=== PATIENT | male | born 1980 | race Caucasian/White ===

== ENCOUNTER 2016-10-26 07:19 | Day surgery (SDC) | payer OTHER ==
[2016-10-18 17:08] VITALS: BMI 25.1
[2016-10-26] MEDS ORDERED: LIDOCAINE HCL 1%, 10 MG/ML (20ML VIAL) ONE (07:22)
[2016-10-26] MEDS ORDERED: MIDAZOLAM HCL 2 MG/2 ML SINGLE DOSE VIAL ONE ×2 (08:02→09:01)
[2016-10-26] MEDS ORDERED: ROPIVACAINE HCL 0.5% 30ML VIAL ONE (08:02)
[2016-10-26] MEDS ORDERED: DEXAMETHASONE SOD PHOSPHATE 4 MG/1 ML VIAL ONE (08:02)
[2016-10-26] MEDS ORDERED: DEXAMETHASONE SOD PHOSPHATE/PF 10 MG/ML SDV ONE (08:03)
[2016-10-26] MEDS ORDERED: PROPOFOL 20 ML ONE ×3 (08:30)
[2016-10-26] MEDS ORDERED: LIDOCAINE HCL 1%, 10 MG/ML (20ML VIAL) IJ ONE (08:50)
[2016-10-26] MEDS ORDERED: ONDANSETRON 4 MG/2 ML VIAL ONE (10:53)
[2016-10-26] MEDS ORDERED: oxyCODONE HCL 5 MG TABLET PO PRN ×2 (11:58)
[2016-10-26] MEDS ORDERED: ONDANSETRON 4 MG/2 ML VIAL IVPUSH PRN (11:58)
[2016-10-26] MEDS ORDERED: PROMETHAZINE HCL 25 MG/1 ML VIAL IVPUSH PRN (11:58)
[2016-10-26] MEDS ORDERED: LACTATED RINGERS SOLUTION 1,000 ML IV SCH (12:00)
[2016-10-26 14:54] VITALS: BP 132/84; PULSE 91; TEMP 97.8
--- NOTE | 2016-10-29 10:14 | OP ---
DATE OF OPERATION: 10/26/2016 PREOPERATIVE DIAGNOSIS: Recurrent shoulder dislocations, right shoulder. POSTOPERATIVE DIAGNOSES: 1. Labral tear with capsular insufficiency. 2. Posttraumatic arthritis, right shoulder. PROCEDURE: Arthroscopy, debridement of glenohumeral joint, synovectomy, labral repair, and capsular shift, right shoulder. SURGEON: Kt Avila MD FINDINGS AND PROCEDURE: The patient was seen in the preoperative holding area where the right shoulder was marked. An interscalene block was administered. The patient was then brought to the operating room and placed on the OR table in a beach chair position. His head was stabilized and bony prominences padded. The right shoulder was examined with sedation. There was no restriction of passive motion noted. The right shoulder was then painted with ChloraPrep, and an 18-gauge spinal needle was used to introduce 40 mL of 1:100,000 epinephrine mixed in normal saline. The posterior portal was injected with 4 mL of 1% lidocaine. The right shoulder was then prepped and free draped in sterile fashion. A timeout was performed identifying the patient and the correct surgical site. The arthroscope was introduced into the shoulder via posterior portal 2.5 cm medial and inferior to the posterolateral corner of the acromion. A superoanterior portal was established using needle localization, entering the intraarticular triangle just anterior the biceps tendon. A 7-mm disposable cannula was passed. A diagnostic arthroscopy of the shoulder was performed. There was a positive drive-through sign. There was extensive capsular stripping from the anterior glenoid neck with a thin strip of labral tissue with a large pouch anteriorly. The inferior glenohumeral ligament complex was scarred medially to the neck of the glenoid. The rotator cuff was intact. The biceps tendon was intact. The glenoid had chondral damage as well as osteophytic changes. In addition, there was chondral damage to the posterior aspect of the humeral head consistent with prior shoulder dislocations. A synovectomy was performed using a full-radius shaver, and the superior labrum which was partially torn was debrided using the shaver and the ArthroWand. We placed the arthroscope into the inferior axillary recess. There were chondral fragments but no loose bodies. The chondral fragments were debrided from the shoulder joint. We then used an arthroscopic elevator to elevate the inferior glenohumeral ligament complex from the medial neck of the glenoid. The shaver was used to debride the anterior neck of the glenoid down to cancellous bone. We then placed a traction suture through the capsular tissue inferiorly using a 90-degree suture lasso. With traction on the inferior capsule complex, we used the lasso to sequentially place 4 suture anchors at the 5 o'clock, 4 o'clock, 3 o'clock, and 2 o'clock positions. For each anchor, the suture lasso was used to shuttle a suture tape loop through the labrum such that a cinch loop could be passed around the labral tissue. We then placed the cannula from the Arthrex 2.9-mm PushLock anchor at the anterior edge of the glenoid, and for each anchor, placed the drill hole and then loaded the corresponding tape loop into a PushLock anchor. The anchor was passed down the inferior portal cannula and seated into the bone hole. It was then malleted into place. This shifted the capsule labral tissue onto the face of the anterior edge of the glenoid, eliminating the positive drive-through sign and eliminating the capsular redundancy. Following placement of the anchor, we debrided the glenoid articular surface with an ArthroWand, followed by debridement of the humeral head. The arthroscopic instruments were removed. The portal incisions were closed using 3-0 Vicryl and 3-0 Monocryl sutures. The incision was covered with Mastisol and Steri-Strips, followed by Tegaderm, sterile dressings, ABD pad, and Medipore tape. The arm was placed in a sling. The patient was revived from sedation and taken to the recovery room in stable condition. Total blood loss minimal. Pathology specimens: Intraarticular shavings. KT AVILA M.D. [id number]
== END 2016-10-26 12:40 | disposition home or self-care (01) ==
LOC: FASU 07:19
PROVIDERS: ATTEND Orthopaedic Surgery Sports Medicine
PROC: 0RQJ4ZZ Repair Right Shoulder Joint, Percutaneous Endoscopic Approach (ICD-10-PCS; 2016-10-26)
PROC: 0RBJ4ZZ Excision of Right Shoulder Joint, Percutaneous Endoscopic Approach (ICD-10-PCS; principal; 2016-10-26 09:00)
DX: S43.491A Other sprain of right shoulder joint, initial encounter (principal); M19.111 Post-traumatic osteoarthritis, right shoulder; M25.311 Other instability, right shoulder; M24.411 Recurrent dislocation, right shoulder; X58.XXXA Exposure to other specified factors, initial encounter; Y93.9 Activity, unspecified; Y92.9 Unspecified place or not applicable
CPT/HCPCS: 94760